=== PATIENT | female | born 1950 | race Caucasian/White ===

== ENCOUNTER 2018-03-07 17:57 | Emergency (ER) | payer MEDICARE, BC ==
[~2018-03-07] VITALS: Ht 167.6 cm; Wt 59.0 kg
[2018-03-07] MEDS ORDERED: BUSPIRONE (18:03)
[2018-03-07] MEDS ORDERED: RITALIN (18:03)
--- NOTE | 2018-03-07 18:31 | NUR ---
PT ON [facility] AWAITING MSE.
--- NOTE | 2018-03-07 19:18 | NUR ---
[facility] REPORT TO HADLEY ABAD
--- NOTE | 2018-03-07 19:26 | NUR ---
ASSUMED CARE OF PATIENT. NO ACUTE DISTRESS NOTED. VSS.
--- NOTE | 2018-03-07 19:55 | NUR ---
Patient discharged to home in stable conditon. Written and verbal after care instructions given. Patient verbalizes understanding of instructions. Ambulated from ER with stable gait. No acute distress at this time. VSS. Patients chin cleaned, dry, dry dressing applied. All belongings with patient.
[2018-03-07 19:57] VITALS: BP 148/78
== END 2018-03-07 19:57 | disposition home or self-care (01) ==
LOC: ER 17:57
DX: S01.81XA Laceration without foreign body of other part of head, initial encounter (principal); Z79.899 Other long term (current) drug therapy; W18.30XA Fall on same level, unspecified, initial encounter; Y93.89 Activity, other specified; Y92.89 Other specified places as the place of occurrence of the external cause; Y99.8 Other external cause status
CPT/HCPCS: A4663